=== PATIENT | female | born 1960 | race African-American/Black ===

== ENCOUNTER 2019-01-01 11:21 | Emergency (ER) | payer MEDICARE, MEDICAID ==
[~2019-01-01] VITALS: Ht 172.7 cm; Wt 113.0 kg
[~2019-01-01 11:21] MED LIST: AMLO10TA80 PO; LOSA50TA41 PO
[2019-01-01] MEDS ORDERED: IBUPROFEN 800MG TABLET PO ONE (14:45)
[2019-01-01] MEDS ORDERED: ACETAMINOPHEN 325MG TABLET PO ONE (15:00)
[2019-01-01 18:10] VITALS: BP 138/81
== END 2019-01-01 18:34 | disposition home or self-care (01) ==
LOC: ER 11:28
DX: M79.601 Pain in right arm (principal); M25.551 Pain in right hip; J45.909 Unspecified asthma, uncomplicated; I10 Essential (primary) hypertension; Z88.0 Allergy status to penicillin
CPT/HCPCS: 73090; 73502; 73630; 99283

== ENCOUNTER 2024-03-19 22:09 | Emergency (ER) | payer MEDICARE, MEDICAID ==
[~2024-03-19] VITALS: Ht 167.6 cm; Wt 100.0 kg
[~2024-03-19 22:09] MED LIST changes: +LACT10SO81 MT; +LEVO250T74 MT
[2024-03-19 22:26] VITALS: BP 112/60; PULSE 62; RESP 16; TEMP 98.4; O2SAT 100
[2024-03-19 22:56] LABS: BASOPHILS % 0.9 % (0.0-2.0); EOSINOPHILS % 2.4 % (0.0-5.0); HEMOGLOBIN. 12.1 g/dL (12.0-16.0); LYMPHOCYTES % 27.1 % (20.0-50.0); MEAN CORPUSCULAR HEMOGLOBIN 29.8 pg (28.0-32.0); MEAN CORPUSCULAR HGB CONC 32.7 g/dL (31.0-37.0); MEAN CORPUSCULAR VOLUME 90.9 fL (81.0-99.0); MEAN PLATELET VOLUME 6.7 fl (7.4-10.4); MONOCYTES % 6.4 % (2.0-8.0); NEUTROPHILS % 63.2 % (40.0-76.0); PLATELET 310 x1000/uL (130-400); RED BLOOD CELL COUNT 4.07 mill/uL (4.2-5.4); RED CELL DISTRIBUTION WIDTH 14.8 % (11.6-14.6); WHITE BLOOD COUNT 6.9 x1000/uL (4.5-11.0)
[2024-03-19 23:03] LABS: CHLORIDE 106 mEq/L (98-107); POTASSIUM 3.6 mEq/L (3.5-5.1); SODIUM 140 mEq/L (136-145)
[2024-03-19 23:04] LABS: CALCIUM 9.5 mg/dL (8.7-10.4); CARBON DIOXIDE 28 mEq/L (21-32)
[2024-03-19 23:06] LABS: PROTHROMBIN TIME 11.1 sec (9.6-11.0)
[2024-03-19 23:09] LABS: CREATININE 0.8 mg/dL (0.6-1.0); GLUCOSE 108 mg/dL (70-105); UREA NITROGEN BLOOD 13 mg/dL (9-23)
[2024-03-19 23:48] LABS: ALANINE AMINOTRANSFERASE 10 IU/L (10-49); ALBUMIN 3.8 g/dL (3.2-4.8); ASPARTATE AMINOTRANSFERASE 20 IU/L (<34); BILIRUBIN TOTAL 0.3 mg/dL (0.1-1.0); PROTEIN TOTAL 7.9 g/dL (6.0-8.3)
[2024-03-19 23:53] LABS: BILIRUBIN DIRECT < 0.1 mg/dL (<=3.0)
[2024-03-20] MEDS ORDERED: POLYETHYLENE GLYCOL 3350 (17GM) 1 DOSE PACK PO ONE (01:15)
[2024-03-20] MEDS ORDERED: ACETAMINOPHEN 325MG TABLET PO NR (03:00)
== END 2024-03-20 04:31 | disposition left against medical advice (07) ==
LOC: ER 22:09 → EDBEDREQTM 03-20 03:05 → EDBEDREQ 03-20 03:05 → ER 03-20 04:31
DX: K59.00 Constipation, unspecified (principal); I10 Essential (primary) hypertension; J45.909 Unspecified asthma, uncomplicated; Z79.899 Other long term (current) drug therapy; Z88.0 Allergy status to penicillin
CPT/HCPCS: 36415; 74176; 80048; 80076; 85025; 99284